=== PATIENT | female | born 1990 | race Caucasian/White ===

== ENCOUNTER 2016-06-11 02:26 | Inpatient (IN) | payer OTHER ==
[2016-06-11] VITALS (14 sets, daily range): BP systolic 118–146; BP diastolic 59–74; PULSE 94–124; RESP 17–28; TEMP 96–98.4; O2SAT 91–97
[~2016-06-11] VITALS: Ht 157.5 cm; Wt 89.1 kg
[~2016-06-11 02:26] MED LIST: ADVAI100I PO; ALBU.5I NEB; ALBU0.086 INH; ALBU17I INH; DUONI NEB; PRED10PA PO; ST J300C PO
[2016-06-11] MEDS ORDERED: ONDANSETRON HCL 4 MG/2 ML VIAL ONE (02:37)
--- NOTE | 2016-06-11 02:38 | PD ---
HPI Chief Complaint: Respiratory Distress Time Seen by Provider: 02:32 Travel History International Travel<30 days: No Contact w/Intl Traveler<30days: No Traveled to known affect area: No History of Present Illness HPI The patient is a 26 year old female who presents to the [facility] emergency department with a history of asthma since infancy that began to experience increased cough and wheezing on Saturday. The patient reports that she last used her rescue inhaler on Saturday, however this evening when her symptoms woke her up from sleep she went to [facility] emergency department and was given 3 nebulizer treatments. She was also given a prescription for Singulair. She reports that she has not had a chance to fill the prescription. She reports that just after leaving that facility her symptoms recurred. She reports that her cough is dry in character. She denies having any fevers. She denies having any nasal discharge. The patient denies any neck pain, chest pain , abdominal pain, vomiting, diarrhea, urinary symptoms, or neurologic symptoms. LMP: 06/03/2016 [facility] Past Medical History Narrative Medical The patient's past medical history is significant for asthma since childhood. 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 She reports that her immunizations are up-to-date. She denies ever being intubated. She reports that she has however been admitted to the hospital related to an asthma exacerbation. The patient has a history of depression and eczema. Asthma: Yes Blood Disorders: No Anxiety: No Depression: Yes Heart Rhythm Problems: No Cancer: No Cardiovascular Problems: No High Cholesterol: No Chest Pain: No Congestive Heart Failure: No COPD: No Diminished Hearing: No Endocrine: No Genitourinary: No Immune Disorder: No Musculoskeletal: No Neurologic: No Psychiatric: Yes Reproductive: No Respiratory: Yes (ASTHMA) Immunizations Current: No Sleep Apnea: No ?: Not LMP: 06/03/16 Past Surgical History Narrative Surgical The patient reports having her wisdom teeth extracted. Oral Surgery: Yes (wisdom teeth) Social History Alcohol Use: Yes (RARELY) Tobacco Use: No Substance Use: No Allergies-Medications (Allergen,Severity, Reaction): Coded Allergies: No Known Allergies (Unverified , 04/19/15) Reported Meds & Prescriptions Reported Meds & Active Scripts Active Advair Diskus 100/50 (Salmeterol Xinafoate/Fluticasone) Fluticasone/Salmeterol 100/50 Inh 1 Puff PO BID 30 Days Resp: Albuterol/Ipratropium 2.5 Mg/0.5 Mg (Albuterol/Ipratropium) 1 Amp Nebu 1 Ampule NEB Q4HR WHILE AWAKE NEB 30 Days Sterapred Ds 12 Day Pack (Prednisone) 10 Mg Lamont 10 Mg PO DIRECTED USE DIRECTED Proventil Conc Ud 0.5% (2.5 Mg/0.5 Ml) (Albuterol Sulfate) 2.5 Mg/0.5 Ml Inha 2.5 Mg NEB Q4HR NEB PRN 30 Days Proventil Mdi (Albuterol Sulfate) 17 Gm Aero 2 Puff INH Q4-6HPRN Proventil Ud 0.083% (2.5 Mg/3 Ml) (Albuterol Sulfate) 2.5 Mg/3 Ml Inha 2.5 Mg INH Q4-6HPRN Reported [facility] Baeza Wort ([place] Perforatum) 300 Mg Tab 300 Mg PO DAILY Review of Systems Except as stated in HPI: all other systems reviewed are Neg General / Constitutional: No: Fever Eyes: No: Visual changes HENT: No: Headaches Cardiovascular: Positive: Dyspnea on exertion, No: Chest Pain or Discomfort Respiratory: Positive: Cough (dry in character), Shortness of Breath, Wheezing Gastrointestinal: No: Nausea, Vomiting, Abdominal Pain, Changes in Bowel Habits , Indigestion, Loss of Appetite Genitourinary: No: Dysuria Musculoskeletal: No: Pain Skin: No Rash Neurologic: No: Weakness Psychiatric: No: Depression Endocrine: No: Polydipsia Hematologic/Lymphatic: No: Easy Bruising Physical Exam Narrative General: The patient is a well-developed well-nourished female who presents to [facility] emergency Department with O2 saturations of 88% on room air, generalized wheezing noted with conversational dyspnea. Head and Neck exam: Head is normocephalic atraumatic. Eyes: EOMI, pupils are equal round and reactive to light. Nose: Midline septum with pink mucous membranes Mouth: Dentition unremarkable. Moist mucus membranes. Posterior oropharynx is not erythematous. No tonsillar hypertrophy. Uvula midline. Airway patent. Neck: No palpable lymphadenopathy. No nuchal rigidity. No thyromegaly. Cardiovascular: Sinus tachycardia in the low 100 without murmurs, gallops, or rubs. No pulse deficit to the extremities and simultaneous auscultation and palpation of her radial artery. Lungs: Expiratory wheezes are audible throughout all lung st[place]. No rhonchi, no crackles. Abdomen: Soft, without tenderness to palpation in all 4 quadrants of the abdomen. No guarding, rebound, or rigidity. Normal bowel sounds are audible. No tenderness on palpation of McBurney's point. Extremities: No clubbing, cyanosis, or edema. No calf tenderness on palpation. Back: No costovertebral angle tenderness to palpation. Neurologic Exam: Grossly nonfocal. Skin Exam: No rash noted. Intact skin that is warm and dry. Data Data Last Documented VS Vital Signs Date Time Temp Pulse Resp B/P Pulse Ox O2 Delivery O2 Flow Rate FiO2 06/11/16 03:10 92 Nasal Cannula 2.00 06/11/16 02:34 115 22 127/68 06/11/16 02:31 98.4 Orders Electrocardiogram (06/11/16 02:32) Complete Blood Count With Diff (06/11/16 02:32) Basic Metabolic Panel (Bmp) (06/11/16 02:32) D-Dimer (06/11/16 02:32) Magnesium (Mg) (06/11/16 02:32) Chest, Single Ap (06/11/16 02:32) Iv Access Insert/Monitor (06/11/16 02:32) Ecg Monitoring (06/11/16 02:32) Oximetry (06/11/16 02:32) Ed Urine Pregnancytest Poc (06/11/16 02:32) Sodium Chloride 0.9% Flush (Ns Flush) (06/11/16 02:45) Methylprednisolone So Succ Inj (Solumedr (06/11/16 02:45) Albuterol-Ipratropium Neb (Duoneb Neb) (06/11/16 02:45) Ondansetron Inj (Zofran Inj) (06/11/16 02:37) Sodium Chlor 0.9% 1000 Ml Inj (Ns 1000 M (06/11/16 02:45) Ondansetron Inj (Zofran Inj) (06/11/16 02:45) Ct Pulmonary Angiogram (06/11/16 03:17) Iohexol 350 Inj (Omnipaque 350 Inj) (06/11/16 03:47) Ceftriaxone Inj (Rocephin Inj) (06/11/16 05:00) Azithromycin Inj (Zithromax Inj) (06/11/16 05:00) Blood Culture (06/11/16 05:01) Admit Order (Ed Use Only) (06/11/16 05:11) Labs Laboratory Tests Test 06/11/16 02:45 White Blood Count 13.3 TH/MM3 Red Blood Count 4.88 MIL/MM3 Hemoglobin 14.0 GM/DL Hematocrit 41.5 % Mean Corpuscular Volume 84.9 FL Mean Corpuscular Hemoglobin 28.6 PG Mean Corpuscular Hemoglobin 33.7 % Concent Red Cell Distribution Width 13.1 % Platelet Count 322 TH/MM3 Mean Platelet Volume 8.6 FL Neutrophils (%) (Auto) 52.0 % Lymphocytes (%) (Auto) 24.3 % Monocytes (%) (Auto) 5.6 % Eosinophils (%) (Auto) 17.3 % Basophils (%) (Auto) 0.8 % Neutrophils # (Auto) 6.9 TH/MM3 Lymphocytes # (Auto) 3.2 TH/MM3 Monocytes # (Auto) 0.7 TH/MM3 Eosinophils # (Auto) 2.3 TH/MM3 Basophils # (Auto) 0.1 TH/MM3 CBC Comment DIFF FINAL Differential Comment D-Dimer Quantitative (PE/DVT) 0.99 MG/L FEU Sodium Level 143 MEQ/L Potassium Level 4.3 MEQ/L Chloride Level 109 MEQ/L Carbon Dioxide Level 24.7 MEQ/L Anion Gap 9 MEQ/L Blood Urea Nitrogen 7 MG/DL Creatinine 0.68 MG/DL Estimat Glomerular Filtration 106 ML/MIN Rate Random Glucose 103 MG/DL Calcium Level 9.2 MG/DL Magnesium Level 2.1 MG/DL [facility] Medical Decision Making Medical Screen Exam Complete: Yes Emergency Medical Condition: Yes Medical Record Reviewed: Yes Interpretation(s) Last Impressions CT Angiography 06/11/16316 Signed Impressions: Service Date/Time: Saturday, June 11, 2016 03:47 - CONCLUSION: 1. Bilateral patchy infiltrates. Treatment and followup recommended. 2. Mild enlargement of the pulmonary trunk suggesting pulmonary arterial hypertension. 3. Mild right hilar adenopathy likely reactive. 4. Scattered sub-centimeters pulmonary nodules, likely benign. 5. No pulmonary embolism. Enoch Olson MD Chest X-Ray 06/11/16 0232 Signed Impressions: Service Date/Time: Saturday, June 11, 2016 02:35 - CONCLUSION: Minimal bibasilar densities otherwise unremarkable chest. Enoch Olson MD Differential Diagnosis Asthma exacerbation, versus pulmonary embolism, versus pneumonia, versus pneumothorax Narrative Course During the course of the patients emergency department visit, the patients history, examination, and differential diagnosis were reviewed with the patient. The patient had IV access obtained and blood work sent for analysis. The patient was placed on a monitoring tech with oximetry and blood pressure monitoring. An EKG was ordered. The patient began to have nausea and vomited 1 in the emergency department. The patient had an EKG done that revealed a sinus tachycardia heart rate of 113, no acute ST segment elevation or depression. The patient was provided normal saline 1 L IV fluid bolus, Zofran 4 mg IV, DuoNeb 3, Solu-Medrol 125 mg IV. The patients laboratory studies were reviewed and remarkable for a white count of 13.3, hemoglobin 14, platelets 322, eosinophils 17.3. Basic metabolic profile is unremarkable, magnesium 2.1, d-dimer elevated at 0.99. CTA to rule out PE was ordered. Radiology studies were reviewed and remarkable for a chest x-ray that shows minimal bibasilar densities in the left worse than the right. Blood cultures 2 were drawn. The patient was started on Rocephin 1 g IV, Zithromax 500 IV. The patient continued to require supplemental oxygen. The patient was initially satting 85-88% on room air. The patient is now on 2 L nasal cannula O2 and saturating 93%. CTA to rule out PE shows a bilateral patchy infiltrate, treatment and follow-up recommended, mild enlargement of the pulmonary trunk suggesting pulmonary arterial hypertension, mild right hilar adenopathy that is likely reactive, scattered subcentimeter pulmonary nodules likely benign, no PE. The patients results were discussed with the patient, including the plan of care. I explained that further testing and/ or monitoring is indicated based on the patients history, examination, and/ or laboratory findings. Therefore, I recommended admission for additional evaluation. The patient expressed understanding and was agreeable with this plan. The patient was admitted to the hospital in stable condition and sent to a bed under the care of the [facility] hospitalist service. Physician Communication Physician Communication The patient's case was discussed with Dr. Shah who did agree to admit the patient for further evaluation and treatment at this time. Diagnosis Primary Impression: Asthma exacerbation Additional Impressions: Hypoxemia Lung infiltrate Admitting Information Admitting Physician Requests: it Veena Valentin MD Jun 11, 2016 02:38
[2016-06-11] MEDS ORDERED: SODIUM CHLORIDE 0.9% FLUSH 10 ML FLUSH IVF PRN (02:45)
[2016-06-11] MEDS ORDERED: SODIUM CHLOR 0.9% 1000 ML INJ 1,000 ML IV ONE ×2 (02:45→05:15)
[2016-06-11] MEDS ORDERED: ONDANSETRON HCL 4 MG/2 ML VIAL IV ONE (02:45)
[2016-06-11] MEDS ORDERED: methylPREDNISolone SOD SUCC 125 MG/2 ML VIAL IVP ONE (02:45)
[2016-06-11 02:53] LABS: AUTOMATED NEUTROPHIL # 6.9 TH/MM3 (1.8-7.7); BASOPHIL # 0.1 TH/MM3 (0-0.2); BASOPHIL % 0.8 % (0.0-2.0); EOSINOPHIL # 2.3 TH/MM3 (0-0.4); EOSINOPHIL % 17.3 % (0.0-4.0); HEMATOCRIT 41.5 % (35.0-46.0); HEMO FLAGS DIFF FINAL; LYMPH % 24.3 % (9.0-44.0); LYMPHOCYTE # 3.2 TH/MM3 (1.0-4.8); MEAN CELL VOLUME 84.9 FL (80.0-100.0); MEAN CORPUSCULAR HEMOGLOBIN 28.6 PG (27.0-34.0); MEAN CORPUSCULAR HGB CONC 33.7 % (32.0-36.0); MONO % 5.6 % (0.0-8.0); PLATELET COUNT 322 TH/MM3 (150-450); RED BLOOD COUNT 4.88 MIL/MM3 (4.00-5.30); RED CELL DISTRIBUTION WIDTH 13.1 % (11.6-17.2); WHITE BLOOD COUNT 13.3 TH/MM3 (4.0-11.0)
[2016-06-11 03:32] LABS: BICARBONATE 24.7 MEQ/L (21.0-32.0); MAGNESIUM 2.1 MG/DL (1.5-2.5); POTASSIUM 4.3 MEQ/L (3.5-5.1)
[2016-06-11] MEDS: RESP: ALBUTEROL 2.5 MG/IPRATROPIUM 0.5 MG NEB (SCH) INH (03:40)
[2016-06-11] MEDS ORDERED: IOHEXOL 350 MG/ML 10 ML VIAL (for RAD DIAG) IV ONE (03:47)
--- NOTE | 2016-06-11 04:02 | RADRPT ---
EXAM DATE/TIME: 06/11/2016 02:35 [facility] COMPARISON: No previous studies available for comparison. INDICATIONS : Shortness of breath. MEDICAL HISTORY : Asthma. SURGICAL HISTORY : None. ENCOUNTER: Initial ACUITY: 1 day PAIN SCORE: 3/10 LOCATION: chest midline. FINDINGS: A single view of the chest demonstrates minimal bibasilar densities greater in the left lower lobe. H eart normal in size. The cardiomediastinal contours are unremarkable. Osseous structures are intact. CONCLUSION: Minimal bibasilar densities otherwise unremarkable chest. Enoch Olson MD on June 11, 2016 at 4:00 Board Certified Radiologist. This report was verified electronically.
[2016-06-11] MEDS ORDERED: AZITHROMYCIN INJ 500 MG in SODIUM CHLOR 0.9% 250 ML INJ 250 ML IV ONE (05:00)
[2016-06-11] MEDS ORDERED: cefTRIAXone INJ 1,000 MG in SODIUM CHLORIDE 0.9% INJ 100 ML IV ONE (05:00)
--- NOTE | 2016-06-11 05:14 | RADRPT ---
EXAM DATE/TIME: 06/11/2016 03:47 [facility] COMPARISON: CHEST SINGLE AP, June 11, 2016, 2:35. INDICATIONS : Respiratory distress; rule out pulmonary embolus. IV CONTRAST: 70 cc Omnipaque 350 (iohexol) IV RADIATION DOSE: 23.38 CTDIvol (mGy) MEDICAL HISTORY : Asthma SURGICAL HISTORY : None. ENCOUNTER: Initial ACUITY: 1 day PAIN SCALE: 0/10 LOCATION: chest TECHNIQUE: Volumetric scanning of the chest was performed using a pulmonary embolism protocol MIP images were re constructed. Using automated exposure control and adjustment of the mA and/or kV according to patien t size, radiation dose was kept as low as reasonably achievable to obtain optimal diagnostic quality images. FINDINGS: PULMONARY ARTERIES: No filling defects are seen in the pulmonary arteries through the segmental level. LUNGS: There are patchy infiltrates in the right upper lobe, right middle lobe and left upper lobe, includin g the lingula. There are some scattered pulmonary nodules measure 5 mm in the right lower lobe superi or segment. There is a 5 mm nodule in the right lower lobe posteriorly. There is a 2 mm nodule in the left lower lobe posteriorly. No concerning pulmonary nodule is visualized. PLEURAE: There is no pleural thickening or pleural effusion. MEDIASTINUM: There is good visualization of the great vessels of the middle mediastinum. Mild right hilar adenopat hy measures 1.3 x 1.7 cm. Small lymph nodes seen within the prevascular/superior mediastinum. Pulmona ry trunk mildly enlarged, measuring 2.7 cm, suggesting pulmonary arterial hypertension. MUSCULOSKELETAL: Within normal limits for patient age. MISCELLANEOUS: The visualized upper abdominal organs demonstrate no acute abnormality. CONCLUSION: 1. Bilateral patchy infiltrates. Treatment and followup recommended. 2. Mild enlargement of the pulmonary trunk suggesting pulmonary arterial hypertension. 3. Mild right hilar adenopathy likely reactive. 4. Scattered sub-centimeters pulmonary nodules, likely benign. 5. No pulmonary embolism. Enoch Olson MD on June 11, 2016 at 5:06 Board Certified Radiologist. This report was verified electronically.
[2016-06-11] MEDS ORDERED: RESP: ALBUTEROL 2.5 MG/3 ML NEB (PRN) NEB (05:15)
[2016-06-11] MEDS ORDERED: ACETAMINOPHEN 325 MG TAB PO PRN (05:15)
[2016-06-11] MEDS ORDERED: BISACODYL 10 MG SUPP RECTAL PRN (05:15)
[2016-06-11] MEDS ORDERED: ONDANSETRON HCL 4 MG/2 ML VIAL IVP PRN (05:15)
[2016-06-11] MEDS ORDERED: SODIUM CHLORIDE 0.9% FLUSH 10 ML FLUSH IV FLUSH PRN (05:15)
--- NOTE | 2016-06-11 05:22 | HHI.HP ---
[facility] No Primary Care Physician Admission Diagnosis Asthma exacerbation, bibasilar infiltrate, hypoxemia on RA Diagnoses: (1) Asthma exacerbation Diagnosis: Principal (2) Hypoxia Diagnosis: Principal (3) PNA (pneumonia) Diagnosis: Principal Travel History International Travel<30 Days: No Contact w/Intl Traveler <30 Da: No Traveled to Known Affected Are: No History of Present Illness This is a 26-year-old female with a PMH of Depression and Asthma who presented to the ER with SOB and wheezing x1 day. States started to have SOB on Saturday , used home inhaler w/ minimal relief. Seen at [facility] last night and given DuoNeb and Rx for Singulair, however has not been able to fill prescription as symptoms progressively worse and decided to come to ER. On arrival, O2 sat 87% on RA, s/p Solu-Medrol and DuoNeb in ER w/ some improvement. WBC 13.3. Chemistry essentially unremarkable. CXR with minimal bibasilar densities. D- dimer mildly elevated 0.99. CTA Pulm currently pending. Review of Systems Except as stated in HPI: all other systems reviewed are Neg ROS: 14 point review of systems otherwise negative. Past Family Social History Past Medical History PMH: Asthma, Depression Past Surgical History PAST SURGICAL HISTORY: [place] Teeth Extraction Allergies: Coded Allergies: No Known Allergies (Unverified , 04/19/15) Family History PAST FAMILY HISTORY: Reviewed. No h/o DM or CAD Social History PAST SOCIAL HISTORY: Occasional alcohol. Negative for tobacco or drugs. Physical Exam Vital Signs Vital Signs Date Time Temp Pulse Resp B/P Pulse Ox O2 Delivery O2 Flow Rate FiO2 06/11/16 03:10 92 Nasal Cannula 2.00 06/11/16 02:34 115 22 127/68 91 Nasal Cannula 2 06/11/16 02:34 122 22 91 Nasal Cannula 2 06/11/16 02:31 98.4 122 22 127/68 91 Physical Exam PE: GENERAL: Young female in no acute distress. HEENT: PERRLA, EOMI. No scleral icterus or conjunctival pallor. No lid lag or facial droop. CARDIOVASCULAR: Regular rate and rhythm. No obvious murmurs to auscultation. No chest tenderness to palpation. RESPIRATORY: No obvious rhonchi. Occasional wheezing. Clear to auscultation. Breath sounds equal bilaterally. GASTROINTESTINAL: Abdomen soft, non-tender, nondistended. BS normal. MUSCULOSKELETAL: Extremities without clubbing, cyanosis, or edema. No obvious deformities. NEUROLOGICAL: Awake, alert and oriented x4. No focal neurologic deficits. Moving both upper and lower extremities spontaneously. Laboratory Laboratory Tests Test 06/11/16 02:45 White Blood Count 13.3 Red Blood Count 4.88 Hemoglobin 14.0 Hematocrit 41.5 Mean Corpuscular Volume 84.9 Mean Corpuscular Hemoglobin 28.6 Mean Corpuscular Hemoglobin 33.7 Concent Red Cell Distribution Width 13.1 Platelet Count 322 Mean Platelet Volume 8.6 Neutrophils (%) (Auto) 52.0 Lymphocytes (%) (Auto) 24.3 Monocytes (%) (Auto) 5.6 Eosinophils (%) (Auto) 17.3 Basophils (%) (Auto) 0.8 Neutrophils # (Auto) 6.9 Lymphocytes # (Auto) 3.2 Monocytes # (Auto) 0.7 Eosinophils # (Auto) 2.3 Basophils # (Auto) 0.1 CBC Comment DIFF FINAL Differential Comment D-Dimer Quantitative (PE/DVT) 0.99 Sodium Level 143 Potassium Level 4.3 Chloride Level 109 Carbon Dioxide Level 24.7 Anion Gap 9 Blood Urea Nitrogen 7 Creatinine 0.68 Estimat Glomerular Filtration 106 Rate Random Glucose 103 Calcium Level 9.2 Magnesium Level 2.1 Result Diagram: 06/11/165 06/11/165 Assessment and Plan Problem List: (1) Asthma exacerbation ICD Code: J45.901 Status: Acute (2) Hypoxia ICD Code: R09.02 Status: Acute (3) PNA (pneumonia) ICD Code: J18.9 Status: Acute Assessment and Plan A/P: 1. Asthma: w/ Acute Exacerbation, SOB/wheezing x1 day unrelieved by home inhaler, seen at [facility] s/p DuoNeb x3 however recurrent SOB/wheezing. S/p Solu-Medrol and DuoNeb in ER. Continue w/ Solu-Medrol, Albuterol q4h and q2h prn, Symbicort, Mucinex. 2. Hypoxia: O2 sat 87% on RA upon arrival, currently 92-93% on 2L NC, no respiratory distress at this time, continue w/ treatment as above. 3. PNA: CXR w/ bibasilar consolidations, images reviewed by me. S/p Navdeep/ Lisa in ER, will continue w/ IV Abx. 4. DVT Prophylaxis: SCD/Teds 5. Social work for d/c planning as needed. 6. Case discussed w/ ER physician at length. Physician Certification 2 Midnight Certification Type: Admission for Inpatient Services Order for Inpatient Services The services are ordered in accordance with Medicare regulations or non- Medicare payer requirements, as applicable. In the case of services not specified as inpatient-only, they are appropriately provided as inpatient services in accordance with the 2-midnight benchmark. Estimated LOS (days): 2 days is the estimated time the patient will need to remain in the hospital, assuming treatment plan goals are met and no additional complications. Post-Hospital Plan: Home Kimberley Shah MD Jun 11, 2016 05:22
[2016-06-11] MEDS: AZITHROMYCIN INJ 500 MG in SODIUM CHLOR 0.9% 250 ML INJ 250 ML IV SCH (05:27)
[2016-06-11] MEDS: methylPREDNISolone SOD SUCC 40 MG/1 ML VIAL IV PUSH SCH ×3 (06:00→17:31)
[2016-06-11] MEDS: RESP: ALBUTEROL 2.5 MG/3 ML NEB (SCH) NEB ×4 (07:24→19:58)
[2016-06-11] MEDS: guaiFENesin E.R. 600 MG TAB PO SCH ×2 (09:27→21:34)
[2016-06-11] MEDS: SODIUM CHLORIDE 0.9% FLUSH 10 ML FLUSH IV FLUSH SCH ×2 (09:28→21:35)
[2016-06-11] MEDS: BUDESONIDE-FORMOTEROL 160/4.5 MCG INHALER INH SCH ×2 (11:21→21:35)
--- NOTE | 2016-06-11 14:01 | EKG ---
Date Performed: 06/11/2016 Time Performed: 02:54:45 PTAGE: 26 years EKG: SINUS TACHYCARDIA ABNORMAL RHYTHM ECG NO PREVIOUS TRACING DOCTOR: Agnes Brown Interpretating Date/Time 06/11/2016 13:59:14
[2016-06-12] VITALS: BP 97/52; PULSE 102; RESP 16; TEMP 97.4; O2SAT 92
[2016-06-12] MEDS: methylPREDNISolone SOD SUCC 40 MG/1 ML VIAL IV PUSH SCH ×3 (00:12→11:35)
[2016-06-12 04:00] VITALS: BP 109/64; PULSE 95; RESP 17; TEMP 97.1; O2SAT 93
[2016-06-12] MEDS: AZITHROMYCIN INJ 500 MG in SODIUM CHLOR 0.9% 250 ML INJ 250 ML IV SCH (05:42)
[2016-06-12] MEDS ORDERED: cefTRIAXone INJ 1,000 MG in SODIUM CHLORIDE 0.9% INJ 100 ML IV SCH (06:00)
[2016-06-12] MEDS: SODIUM CHLORIDE 0.9% FLUSH 10 ML FLUSH IV FLUSH SCH (07:52)
[2016-06-12] MEDS: guaiFENesin E.R. 600 MG TAB PO SCH (07:53)
[2016-06-12] MEDS: BUDESONIDE-FORMOTEROL 160/4.5 MCG INHALER INH SCH (07:53)
[2016-06-12 07:55] VITALS: PULSE 98
[2016-06-12 08:00] VITALS: BP 114/64; PULSE 98; RESP 18; TEMP 97.4; O2SAT 94
[2016-06-12 08:02] LABS: AUTOMATED NEUTROPHIL # 17.3 TH/MM3 (1.8-7.7); BASOPHIL % 0.1 % (0.0-2.0); HEMATOCRIT 38.1 % (35.0-46.0); HEMO FLAGS DIFF FINAL; LYMPHOCYTE # 1.3 TH/MM3 (1.0-4.8); MEAN CELL VOLUME 85.5 FL (80.0-100.0); MEAN CORPUSCULAR HEMOGLOBIN 29.2 PG (27.0-34.0); MEAN CORPUSCULAR HGB CONC 34.1 % (32.0-36.0); MONO % 1.8 % (0.0-8.0); NEUT % 91.1 % (16.0-70.0); PLATELET COUNT 302 TH/MM3 (150-450); RED BLOOD COUNT 4.46 MIL/MM3 (4.00-5.30); RED CELL DISTRIBUTION WIDTH 13.2 % (11.6-17.2)
[2016-06-12 08:28] LABS: ALKALINE PHOSPHATASE 73 U/L (45-117); ALT (GPT) 31 U/L (10-53); ANION GAP 9 MEQ/L (5-15); AST (GOT) 12 U/L (15-37); BLOOD UREA NITROGEN 9 MG/DL (7-18); CHLORIDE 108 MEQ/L (98-107); GLOMERULAR FILTRATION RATE 118 ML/MIN (>89); POTASSIUM 4.3 MEQ/L (3.5-5.1); SODIUM (NA) 141 MEQ/L (136-145); TOTAL BILIRUBIN ADULT 0.3 MG/DL (0.2-1.0)
[2016-06-12] MEDS: RESP: ALBUTEROL 2.5 MG/3 ML NEB (SCH) NEB ×2 (09:29→13:20)
[2016-06-12 09:30] VITALS: O2SAT 96
[2016-06-12 12:00] VITALS: BP 123/60; PULSE 112; RESP 18; TEMP 96.3; O2SAT 93
[2016-06-12] MEDS ORDERED: AZIT250T3 PO (13:00)
[2016-06-12] MEDS ORDERED: ADVA100A INH (13:00)
[2016-06-12] MEDS ORDERED: PRED20 PO (13:00)
[2016-06-12] MEDS ORDERED: CEFU1TAB20 PO (13:00)
--- NOTE | 2016-06-12 13:01 | HHI.DCPOC ---
Discharge Care Plan Diagnosis: (1) Asthma exacerbation (2) PNA (pneumonia) (3) Hypoxemia Goals to Promote Your Health * To prevent worsening of your condition and complications * To maintain your health at the optimal level Directions to Meet Your Goals Take your medications as prescribed Follow your dietary instruction Follow activity as directed Keep your appointments as scheduled Take your immunizations and boosters as scheduled If your symptoms worsen call your PCP, if no PCP go to Urgent Care Center or Emergency Room Smoking is Dangerous to Your Health. Avoid second hand smoke Call the 24-hour hour crisis hotline for domestic abuse at Yesenia Gonsalez MD Jun 12, 2016 13:01
--- NOTE | 2016-06-12 13:03 | HHI.PR ---
Subjective Remarks Patient reports feeling much better. She wants to go home. Off oxygen, breathing comfortable. Understand the need to follow up outpatient and to continue antibiotics and steroids outpatient. Objective Vitals Vital Signs Date Time Temp Pulse Resp B/P Pulse Ox O2 Delivery O2 Flow Rate FiO2 06/12/16 12:00 96.3 112 18 123/60 93 06/12/16 09:30 96 Nasal Cannula 2.00 06/12/16 08:00 97.4 98 18 114/64 94 06/12/16 07:55 98 06/12/16 04:00 97.1 95 17 109/64 93 06/12/16 00:00 97.4 102 16 97/52 92 06/11/16 20:00 96.9 110 17 118/65 92 06/11/16 19:27 Nasal Cannula 2.00 06/11/16 19:15 102 06/11/16 15:57 97.1 124 18 133/63 93 06/11/16 15:49 91 Nasal Cannula 1.50 I/O 06/11/16 06/11/16 06/11/16 06/12/16 06/12/16 06/12/16 07:00 15:00 23:00 07:00 15:00 23:00 Intake Total 720 ml 240 ml 240 ml Balance 720 ml 240 ml 240 ml Intake Oral 720 ml 240 ml 240 ml # Voids 1 1 2 # Bowel Movements 0 0 1 Result Diagram: 06/12/1609 06/12/[address] Angiography 06/11/167 Signed Impressions: Service Date/Time: Saturday, June 11, 2016 03:47 - CONCLUSION: 1. Bilateral patchy infiltrates. Treatment and followup recommended. 2. Mild enlargement of the pulmonary trunk suggesting pulmonary arterial hypertension. 3. Mild right hilar adenopathy likely reactive. 4. Scattered sub-centimeters pulmonary nodules, likely benign. 5. No pulmonary embolism. Enoch Olson MD Chest X-Ray 06/11/16 0232 Signed Impressions: Service Date/Time: Saturday, June 11, 2016 02:35 - CONCLUSION: Minimal bibasilar densities otherwise unremarkable chest. Enoch Olson MD Objective Remarks GENERAL: This is a well-nourished, well-developed patient, in no apparent distress. CARDIOVASCULAR: Normal rate and regular rhythm without murmurs, gallops, or rubs. RESPIRATORY: Good respiratory efforts. Breath sounds equal and clear to auscultation bilaterally. GASTROINTESTINAL: Abdomen soft, non-tender, non-distended. Normal active bowel sounds MUSCULOSKELETAL: Extremities without cyanosis, or edema. NEURO: Alert & Oriented x4 to person, place, time, situation. Moves all ext x4 PSYCH: Appropriate mood and affect. A/P Problem List: (1) Asthma exacerbation ICD Code: J45.901 Status: Acute (2) Hypoxia ICD Code: R09.02 Status: Acute (3) PNA (pneumonia) ICD Code: J18.9 Status: Acute Assessment and Plan 26-year-old female admitted with asthma exacerbation and hypoxemia. Chest x- ray revealed bibasilar consolidations. Patient was treated with Rocephin, azithromycin, Solu-Medrol, and breathing treatments. She quickly improved and stabilized enough for discharge home to continue treatment outpatient. Discharge home in good condition Follow-up with: PCP and pulmonology. She needs to establish. Diet: Regular as tolerated Meds: Per med rec Activity: Regular as tolerated Yesenia Gosnalez MD Jun 12, 2016 13:03
[2016-06-19] MEDS ORDERED: ADVA500A INH (10:52)
[2016-06-19] MEDS ORDERED: MONT10TA4 PO (10:52)
[2016-06-19] MEDS ORDERED: ALBUAER3 INH (10:52)
[2016-06-19] MEDS ORDERED: CEFU1TAB20 PO (10:52)
[2016-06-19] MEDS ORDERED: PRED20 PO (10:52)
[2016-06-19] MEDS ORDERED: ALBU0.08 NEB (11:24)
[2016-07-24] MEDS ORDERED: ALBUAER3 INH (14:12)
[2016-07-27] MEDS ORDERED: OSEL75 PO (14:52)
== END 2016-06-12 14:56 | disposition home or self-care (01) | DRG 194 ==
LOC: NEPE 02:26 → NEDA 05:13 → N06A 09:16
PROVIDERS: ADMIT Family Medicine; ATTEND Family Medicine
DX: J18.9 Pneumonia, unspecified organism (principal); J45.901 Unspecified asthma with (acute) exacerbation; F32.9 Major depressive disorder, single episode, unspecified; L30.9 Dermatitis, unspecified
CPT/HCPCS: 71010; 71275; 80048; 80053; 83735; 84703; 85025; 85379; 87040; 93005; 94640; 94664; 96374; 96375; J0456; J0696; J2405; J2920; J2930; J7030; J7050; J7613; Q9967

== ENCOUNTER 2016-10-23 23:05 | Emergency (ER) | payer SELFPAY ==
[~2016-10-23 23:05] MED LIST changes: +ADVA500A INH; -ADVAI100I PO; -ALBU.5I NEB; +ALBU0.08 NEB; -ALBU0.086 INH; -ALBU17I INH; +ALBUAER3 INH; -DUONI NEB; +MONT10TA4 PO; +OSEL75 PO; -PRED10PA PO; -ST J300C PO
[2016-10-23 23:09] VITALS: BP 123/71; PULSE 116; RESP 24; TEMP 98; O2SAT 96
--- NOTE | 2016-10-23 23:40 | PD ---
HPI Chief Complaint: Respiratory Symptoms Time Seen by Provider: 23:33 Travel History International Travel<30 days: No Contact w/Intl Traveler<30days: No History of Present Illness HPI Patient is a 26-year-old female presents emergency department shortness of breath. She states she has a history of asthma and has been in the ICU but never had to be intubated before. He is ran out of her nebulized treatments at home but has been taking inhalers. She has not been on steroids in several months. Denies any fever denies any cough congestion denies any history of long trips nor history of blood clots nor history of oral contraceptive pills or other hormone replacement therapy. States symptoms been going on all day today gradually worsening. PFSH Past Medical History Asthma: Yes Blood Disorders: No Anxiety: No Depression: Yes Heart Rhythm Problems: No Cancer: No Cardiovascular Problems: No High Cholesterol: No Chest Pain: No Congestive Heart Failure: No COPD: No Diminished Hearing: No Endocrine: No Genitourinary: No Immune Disorder: No Musculoskeletal: No Neurologic: No Psychiatric: Yes Reproductive: No Respiratory: Yes (ASTHMA) Immunizations Current: No Sleep Apnea: No Influenza Vaccination: Yes ?: Not LMP: 10/02/16 Past Surgical History Oral Surgery: Yes (wisdom teeth) Social History Alcohol Use: No Tobacco Use: No Substance Use: Yes (MARIJUANA) Allergies-Medications (Allergen,Severity, Reaction): Coded Allergies: diphenhydramine (Unverified Allergy, Severe, asthma, 10/17/16) Reported Meds & Prescriptions Reported Meds & Active Scripts Active Prednisone 20 Mg Tab 60 Mg PO DAILY 5 Days Albuterol Neb (Albuterol Sulfate) 2.5 Mg/3 Ml Neb 2.5 Mg NEB Q4HR NEB While awake Proair Hfa 8.5 GM Inh (Albuterol Sulfate) 90 Mcg/Act Aer 2 Puff INH Q4-6H PRN 108 mcg/actuation Reported Advair Diskus Inh (Fluticasone-Salmeterol Inh) 500-50 Mcg/Blist Aer 1 Puff INH BID Rinse mouth after use. Montelukast (Montelukast Sodium) 10 Mg Tab 10 Mg PO HS Review of Systems Except as stated in HPI: all other systems reviewed are Neg Physical Exam Narrative GENERAL: Well-developed well-nourished, mildly anxious but in obvious distress. SKIN: Focused skin assessment warm/dry. HEAD: Atraumatic. Normocephalic. EYES: Pupils equal and round. No scleral icterus. No injection or drainage. ENT: No nasal bleeding or discharge. Mucous membranes pink and moist. NECK: Trachea midline. No JVD. CARDIOVASCULAR: And only tachycardic with regular rhythm.. No murmur appreciated. RESPIRATORY: No accessory muscle use. Inspiratory x-ray wheezing.. Breath sounds equal bilaterally. No accessory muscle use, no focalized lung sounds. GASTROINTESTINAL: Abdomen soft, non-tender, nondistended. Hepatic and splenic margins not palpable. MUSCULOSKELETAL: No obvious deformities. No clubbing. No cyanosis. No edema. NEUROLOGICAL: Awake and alert. No obvious cranial nerve deficits. Motor grossly within normal limits. Normal speech. PSYCHIATRIC: Appropriate mood and affect; insight and judgment normal. Data Data Last Documented VS Vital Signs Date Time Temp Pulse Resp B/P (MAP) Pulse Ox O2 Delivery O2 Flow Rate FiO2 10/24/16 00:45 10/23/16 23:09 98.0 116 24 96 Orders Orders Albuterol-Ipratropium Neb (Duoneb Neb) (10/23/16 23:45) Prednisone (Deltasone) (10/23/16 23:45) [facility] Medical Decision Making Medical Screen Exam Complete: Yes Emergency Medical Condition: Yes Differential Diagnosis Mild to moderate asthma exacerbation, pneumonia unlikely, PE was considered but unlikely. Narrative Course Patient roomed in emergency department, given 3 duo nebs and prednisone, she was feeling much better, saturations improved from 93 on room air up to 98% on room air. She examined that around the emergency department, discussed the be happy to observe her longer in the ER but she feels she wants to go home. This time she stable for discharge. Will discharge on prednisone I refilled her nebulizer medications. Discussed follow-up with a primary care physician and return to ED criteria. Diagnosis Primary Impression: Asthma exacerbation Med/Other Pt SpecificInfo: Prescription(s) given Scripts Prednisone (Prednisone) 20 Mg Tab 60 MG PO DAILY for 5 Days, TAB 0 Refills Prov: Anthony Lord MD 10/24/16 Albuterol Neb (Albuterol Neb) 2.5 Mg/3 Ml Neb 2.5 MG NEB Q4HR NEB for Breathing Treatment, #180 NEBULE 1 Refill While awake Prov: Anthony Lord MD 10/24/16 Disposition: 01 DISCHARGE HOME Condition: Stable Anthony Lord MD Oct 23, 2016 23:40
[2016-10-23] MEDS ORDERED: predniSONE 20 MG TAB PO ONE (23:45)
[2016-10-23] MEDS ORDERED: RESP: ALBUTEROL 2.5 MG/IPRATROPIUM 0.5 MG NEB (SCH) NEB ONE (23:45)
[2016-10-24] MEDS ORDERED: PRED20 PO (00:39)
[2016-10-24] MEDS ORDERED: ALBU0.08 NEB (00:39)
== END 2016-10-24 01:01 | disposition home or self-care (01) ==
LOC: NEPD 23:05
DX: J45.901 Unspecified asthma with (acute) exacerbation (principal)
CPT/HCPCS: 94640; 94664; 99284; J7512

== ENCOUNTER 2017-01-17 15:53 | Emergency (ER) | payer SELFPAY ==
[~2017-01-17] VITALS: Ht 165.1 cm; Wt 80.0 kg
[~2017-01-17 15:53] MED LIST changes: -OSEL75 PO; +PRED20 PO
[2017-01-17 15:55] VITALS: BP 124/76; PULSE 90; RESP 18; TEMP 98.8; O2SAT 97
[2017-01-17] MEDS ORDERED: methylPREDNISolone SOD SUCC 125 MG/2 ML VIAL IM ONE (17:00)
[2017-01-17] MEDS: RESP: ALBUTEROL 2.5 MG/IPRATROPIUM 0.5 MG NEB (SCH) INH ×2 (17:13→17:14)
--- NOTE | 2017-01-17 17:16 | RADRPT ---
EXAM DATE/TIME: 01/17/2017 16:50 [place] COMPARISON: CHEST SINGLE AP, June 11, 2016, 2:35. INDICATIONS : Wheezing, cough, and shortness of breath. MEDICAL HISTORY : Asthma. SURGICAL HISTORY : None. ENCOUNTER: Initial ACUITY: 1 day PAIN SCORE: 0/10 LOCATION: Bilateral chest FINDINGS: A single view of the chest demonstrates the lungs to be symmetrically aerated without evidence of mas s, infiltrate or effusion. The cardiomediastinal contours are unremarkable. Osseous structures are intact. CONCLUSION: 1. No acute cardiopulmonary findings. Stable compared to previous. Torin Longoria MD on January 17, 2017 at 17:14 Board Certified Radiologist. This report was verified electronically.
[2017-01-17] MEDS ORDERED: PRED20 PO (17:35)
[2017-01-17] MEDS ORDERED: ALBU0.08 NEB (17:35)
[2017-01-17] MEDS ORDERED: ALBUAER3 INH (17:35)
[2017-01-17] MEDS ORDERED: AZIT250T3 PO (17:35)
--- NOTE | 2017-01-17 17:42 | PD ---
HPI Chief Complaint: Respiratory Symptoms Time Seen by Provider: 16:44 Travel History International Travel<30 days: No Contact w/Intl Traveler<30days: No Traveled to known affect area: No History of Present Illness HPI 26-year-old female that presents to the ED for evaluation of asthma exacerbation. Per patient for the past that she's been having a severe asthma exacerbation. She is a history of asthma in the past. She states that she's been using her inhalers as well as her nebulizer machine with minimal relief. Per patient she also has congestion and cough as well as headaches. Denies any fevers chills or sweats. Patient does have sick contacts at home. She states that she's been compliant with her medications. She denies any chest pain. She states having shortness of breath and wheezing the gets worse with ambulation. She denies ever having to be put on a ventilator. She's had asthma all her life. She denies smoking. No recent travel. No bowel movement or urinary issues. No abdominal pain. PFSH Past Medical History Asthma: Yes Blood Disorders: No Anxiety: No Depression: Yes Heart Rhythm Problems: No Cancer: No Cardiovascular Problems: No High Cholesterol: No Chest Pain: No Congestive Heart Failure: No COPD: No Diminished Hearing: No Endocrine: No Genitourinary: No Immune Disorder: No Musculoskeletal: No Neurologic: No Psychiatric: Yes Reproductive: No Respiratory: Yes (ASTHMA ) Immunizations Current: No Sleep Apnea: No ?: Not Past Surgical History Oral Surgery: Yes (wisdom teeth) Other Surgery: Yes (wisdom teeth removal 2009) Social History Alcohol Use: No Tobacco Use: No Substance Use: Yes (MARIJUANA) Allergies-Medications (Allergen,Severity, Reaction): Coded Allergies: diphenhydramine (Unverified Allergy, Severe, asthma, 10/17/16) Reported Meds & Prescriptions Reported Meds & Active Scripts Active Azithromycin 250 Mg Tab 250 Mg PO DIRECTED Take 2 tabs (500 mg) on day 1 then 1 tab daily x 4 days. Prednisone 20 Mg Tab 60 Mg PO DAILY 5 Days Albuterol Neb (Albuterol Sulfate) 2.5 Mg/3 Ml Neb 2.5 Mg NEB Q4HR NEB While awake Proair Hfa 8.5 GM Inh (Albuterol Sulfate) 90 Mcg/Act Aer 2 Puff INH Q4-6H PRN 108 mcg/actuation Reported Advair Diskus Inh (Fluticasone-Salmeterol Inh) 500-50 Mcg/Blist Aer 1 Puff INH BID Rinse mouth after use. Montelukast (Montelukast Sodium) 10 Mg Tab 10 Mg PO HS Review of Systems Except as stated in HPI: all other systems reviewed are Neg Physical Exam Narrative GENERAL: Well-nourished, well-developed patient in no apparent distress. SKIN: Warm and dry. HEAD: Atraumatic. Normocephalic. EYES: Pupils equal and round reactive to light and accommodation. No scleral icterus. No injection or drainage. ENT: No nasal bleeding or discharge. Mucous membranes pink and moist. TMs are clear with no sign of infection or perforation. No mastoid tenderness. Ear canals are intact bilaterally. No lymphadenopathy. Nostril mucosa is red and moist with clear mucus noted. No sinus tenderness to palpation noted. Tonsils are not enlarged or swollen. No ulvua Deviation. Tongue is midline. NECK: Trachea midline. No JVD. No meningeal signs noted CARDIOVASCULAR: Regular rate and rhythm. RESPIRATORY: No accessory muscle use. Wheezings heard in all lung stovall. Breath sounds equal bilaterally. GASTROINTESTINAL: Abdomen soft, non-tender, nondistended. Hepatic and splenic margins not palpable. MUSCULOSKELETAL: Extremities without clubbing, cyanosis, or edema. No obvious deformities. NEUROLOGICAL: Awake and alert. No obvious cranial nerve deficits. Motor grossly within normal limits. Five out of 5 muscle strength in the arms and legs. Normal speech. PSYCHIATRIC: Appropriate mood and affect; insight and judgment normal. Data Data Last Documented VS Vital Signs Date Time Temp Pulse Resp B/P (MAP) Pulse Ox O2 Delivery O2 Flow Rate FiO2 01/17/17 15:55 98.8 90 18 124/76 (92) 97 Room Air Orders Orders Chest, Single Ap (01/17/17 16:48) Methylprednisolone So Succ Inj (Solumedr (01/17/17 17:00) Albuterol-Ipratropium Neb (Duoneb Neb) (01/17/17 17:00) Influenzae A/B Antigen (01/17/17 16:48) Ed Discharge Order (01/17/17 18:23) MDM Medical Decision Making Medical Screen Exam Complete: Yes Emergency Medical Condition: Yes Medical Record Reviewed: Yes Interpretation(s) Last Impressions Chest X-Ray 01/17/17 3668 Signed Impressions: Service Date/Time: , January 17, 2017 16:50 - CONCLUSION: 1. No acute cardiopulmonary findings. Stable compared to previous. Torin Longoria MD influenza negative Differential Diagnosis Asthma exacerbation versus pneumonia versus normal exam Narrative Course 26-year-old female that presents to the ED for evaluation of asthma. Patient was properly examined and was found to have signs and symptoms consistent appears to be acute asthma exacerbation. Patient was assessed and does appear to have significant wheezing. Vitals are stable however. Labs and imaging were ordered. Patient was given breathing treatments. Patient was given Solu- Medrol IM. Patient was reassessed and does feel improved. This time I think the patient can go palpation. We'll give patient a refill of her inhaler as well as nebulizer vacation. She was given a prescription for azithromycin to cover for infection. Given prescription for prednisone as well. Told to follow closely with PCP. See ED for any worsening symptoms. Diagnosis Primary Impression: Asthma exacerbation Qualified Codes: J45.41 - Moderate persistent asthma with (acute) exacerbation Patient Instructions: General Instructions Departure Forms: Tests/Procedures, Work Release Enter return to work date: Jan 20, 2017 Additional Instructions: Motrin and Tylenol for pain and fever. You can use [id number] antihistamine as well as well as Mucinex as needed for runny nose and congestion. Cough drops for cough as needed. Drink plenty of fluids. Follow-up with PCP. See ED for worsening symptoms. Med/Other Pt SpecificInfo: Prescription(s) given Scripts Azithromycin (Azithromycin) 250 Mg Tab 250 MG PO DIRECTED for Infection, #6 TAB 0 Refills Take 2 tabs (500 mg) on day 1 then 1 tab daily x 4 days. Prov: Lian Montes DO 01/17/17 Prednisone (Prednisone) 20 Mg Tab 60 MG PO DAILY for 5 Days, TAB 0 Refills Prov: Lian Montes DO 01/17/17 Albuterol Neb (Albuterol Neb) 2.5 Mg/3 Ml Neb 2.5 MG NEB Q4HR NEB for Breathing Treatment, #180 NEBULE 1 Refill While awake Prov: Lian Montes DO 01/17/17 Albuterol 8.5 GM Inh (Proair Hfa 8.5 GM Inh) 90 Mcg/Act Aer 2 PUFF INH Q4-6H Y for SHORTNESS OF BREATH, #1 INHALER 0 Refills 108 mcg/actuation Prov: Lian Montes DO 01/17/17 Disposition: 01 DISCHARGE HOME Condition: Stable Ankush Yates Jan 17, 2017 17:42
== END 2017-01-17 19:05 | disposition home or self-care (01) ==
LOC: NEPD 15:53
DX: J45.901 Unspecified asthma with (acute) exacerbation (principal); R09.81 Nasal congestion; R05 Cough; R51 Headache; F32.9 Major depressive disorder, single episode, unspecified; Z79.51 Long term (current) use of inhaled steroids; Z79.52 Long term (current) use of systemic steroids; Z79.899 Other long term (current) drug therapy; Z88.8 Allergy status to other drugs, medicaments and biological substances
CPT/HCPCS: 71010; 87804; 94640; 94664; 96372; 99285; J2930

== ENCOUNTER 2017-03-05 14:08 | Emergency (ER) | payer SELFPAY ==
[~2017-03-05] VITALS: Ht 157.5 cm; Wt 84.1 kg
[~2017-03-05 14:08] MED LIST changes: +AZIT250T3 PO
[2017-03-05 14:10] VITALS: BP 114/72; PULSE 79; RESP 25; TEMP 98.8; O2SAT 98
[2017-03-05] MEDS ORDERED: methylPREDNISolone SOD SUCC 125 MG/2 ML VIAL IM ONE (15:00)
[2017-03-05] MEDS: RESP: ALBUTEROL 2.5 MG/IPRATROPIUM 0.5 MG NEB (SCH) INH ×2 (15:20→15:25)
--- NOTE | 2017-03-05 15:31 | PD ---
HPI Chief Complaint: Respiratory Distress Time Seen by Provider: 14:44 Travel History International Travel<30 days: No Contact w/Intl Traveler<30days: No Traveled to known affect area: No History of Present Illness HPI 26-year-old female with history of asthma presents to the emergency room for evaluation of asthma exacerbation. Patient states it started last night after she spilled a bottle of bleach while cleaning at work. Her sister had to bring her nebulizer machine to work so she could have a treatment. States this morning when she woke up she was wheezing so hard that was causing her to cough. She has felt short of breath with wheezing since then. She used her nebulization treatment a few times without significant relief in symptoms. Patient got over a cold 4 days ago and was feeling fine until the bleach incident last night. No fevers or cough. Denies chronic medical conditions other than asthma. Patient has had to be hospitalized for status asthmaticus never needed to be on a ventilator. PFSH Past Medical History Asthma: Yes Blood Disorders: No Anxiety: No Depression: Yes Heart Rhythm Problems: No Cancer: No Cardiovascular Problems: No High Cholesterol: No Chest Pain: No Congestive Heart Failure: No COPD: No Diminished Hearing: No Endocrine: No Genitourinary: No Immune Disorder: No Musculoskeletal: No Neurologic: No Psychiatric: Yes Reproductive: No Respiratory: Yes ( ) Immunizations Current: No Sleep Apnea: No ?: Not LMP: 02/26/2017 Past Surgical History Oral Surgery: Yes (wisdom teeth) Other Surgery: Yes (wisdom teeth removal 2009) Social History Alcohol Use: No Tobacco Use: No Substance Use: No ( ) Allergies-Medications (Allergen,Severity, Reaction): Coded Allergies: diphenhydramine (Unverified Allergy, Severe, asthma, 10/17/16) Reported Meds & Prescriptions Reported Meds & Active Scripts Active Prednisone 20 Mg Tab 60 Mg PO DAILY 5 Days Proair Hfa 8.5 GM Inh (Albuterol Sulfate) 90 Mcg/Act Aer 2 Puff INH Q4-6H PRN 108 mcg/actuation Albuterol Neb (Albuterol Sulfate) 2.5 Mg/3 Ml Neb 2.5 Mg NEB Q4HR NEB While awake Review of Systems Except as stated in HPI: all other systems reviewed are Neg Physical Exam Narrative GENERAL: Well-nourished, well-developed female in no acute distress. Afebrile. Ambulatory. SKIN: Focused skin assessment warm/dry. HEAD: Normocephalic. EYES: No scleral icterus. No injection or drainage. NECK: Supple, trachea midline. No JVD or lymphadenopathy. CARDIOVASCULAR: Regular rate and rhythm without murmurs, gallops, or rubs. RESPIRATORY: No accessory muscle use. Slight increased work of breathing. Distant lung sounds bilaterally. There is bilateral expiratory wheezing in all lung stovall. PSYCHIATRIC: No delusional thought processes. No hallucinations. Data Data Last Documented VS Vital Signs Date Time Temp Pulse Resp B/P (MAP) Pulse Ox O2 Delivery O2 Flow Rate FiO2 03/05/17 14:10 98.8 79 25 114/72 (86) 98 Orders Orders Methylprednisolone So Succ Inj (Solumedr (03/05/17 15:00) Albuterol-Ipratropium Neb (Duoneb Neb) (03/05/17 15:00) Ed Discharge Order (03/05/17 15:56) [facility] Medical Decision Making Medical Screen Exam Complete: Yes Emergency Medical Condition: Yes Medical Record Reviewed: Yes Differential Diagnosis Asthma exacerbation, lung nodule, hypoxia, pneumonia Narrative Course 26-year-old female with history of asthma presents to the emergency room for evaluation of exacerbation that started last night. Symptoms started after she spilled a bottle of bleach on the floor last night. She has been using her nebulizer treatment several times without relief in symptoms. She recently got over a cold but has no cold symptoms at this time. Vital signs otherwise stable. Patient has increased respirations but no accessory muscle use. Lungs sounds reveal bilateral inspiratory and expiratory wheezing in all stovall. There is also decreased air movement. Patient was given 125 mg IM Solu-Medrol and 3 duo nebs in the emergency room. Patient reports significant improvement after treatment. Her respirations have slowed. She still has bilateral inspiratory and expiratory wheezing but there is significantly improved airflow. She will be discharged with prescriptions for prednisone and albuterol. Patient was encouraged to follow up with a primary care physician and/or supervisor show operations for long-term management of symptoms. Told to return for worsening symptoms. She understands and agrees to plan. Diagnosis Primary Impression: Asthma exacerbation Qualified Codes: J45.21 - Mild intermittent asthma with (acute) exacerbation Referrals: Keyur Gutierrez MD Primary Care Physician Marketing Development Specialist Additional Instructions: Prednisone as directed, until gone. Use inhaler as directed, as needed for shortness of breath and wheezing. Humidified air will help improve symptoms. Follow-up with a primary care physician. Return to the emergency room for worsening symptoms. Scripts Prednisone (Prednisone) 20 Mg Tab 60 MG PO DAILY for 5 Days, TAB 0 Refills Prov: Lucy Mc MD 03/05/17 Albuterol 8.5 GM Inh (Proair Hfa 8.5 GM Inh) 90 Mcg/Act Aer 2 PUFF INH Q4-6H Y for SHORTNESS OF BREATH, #1 INHALER 0 Refills 108 mcg/actuation Prov: Lucy Mc MD 03/05/17 Disposition: 01 DISCHARGE HOME Condition: Stable Inez Mcqueen Mar 05, 2017 15:31
[2017-03-05] MEDS ORDERED: PRED20 PO (15:53)
[2017-03-05] MEDS ORDERED: ALBUAER3 INH (15:53)
== END 2017-03-05 16:10 | disposition home or self-care (01) ==
LOC: NEPK 14:08
DX: J45.21 Mild intermittent asthma with (acute) exacerbation (principal)
CPT/HCPCS: 94640; 94664; 96372; 99284; J2930

== ENCOUNTER 2017-04-05 10:47 | Emergency (ER) | payer SELFPAY ==
[~2017-04-05] VITALS: Ht 157.5 cm; Wt 84.0 kg
[~2017-04-05 10:47] MED LIST changes: -ADVA500A INH; -AZIT250T3 PO; -MONT10TA4 PO
[2017-04-05 10:48] VITALS: BP 129/62; PULSE 106; RESP 20; TEMP 98.9; O2SAT 97
--- NOTE | 2017-04-05 11:19 | PD ---
HPI Chief Complaint: Cold / Flu Symptoms Time Seen by Provider: 10:56 Travel History International Travel<30 days: No Contact w/Intl Traveler<30days: No Traveled to known affect area: No History of Present Illness HPI This is a 26-year-old female who has a history of asthma who presents to the emergency department with subjective fevers and chills for 1 day, constant, moderate severity associated with a nonproductive cough, body aches and some nausea and decreased appetite. She says her boss at work had the flu. She has been using her nebulizer treatments because she has been feeling like she is wheezing. She did not get the flu shot this year. PFSH Past Medical History Asthma: Yes Blood Disorders: No Anxiety: No Depression: Yes Heart Rhythm Problems: No Cancer: No Cardiovascular Problems: No High Cholesterol: No Chest Pain: No Congestive Heart Failure: No COPD: No Diminished Hearing: No Endocrine: No Genitourinary: No Immune Disorder: No Musculoskeletal: No Neurologic: No Psychiatric: Yes Reproductive: No Respiratory: Yes ( ) Immunizations Current: No Sleep Apnea: No Influenza Vaccination: No ?: Not LMP: 03/22/17 Past Surgical History Oral Surgery: Yes (wisdom teeth) Other Surgery: Yes (wisdom teeth removal 2009) Social History Alcohol Use: No Tobacco Use: No Substance Use: No ( ) Allergies-Medications (Allergen,Severity, Reaction): Coded Allergies: diphenhydramine (Unverified Allergy, Severe, asthma, 10/17/16) Reported Meds & Prescriptions Reported Meds & Active Scripts Active Prednisone 20 Mg Tab 60 Mg PO DAILY 5 Days Proair Hfa 8.5 GM Inh (Albuterol Sulfate) 90 Mcg/Act Aer 2 Puff INH Q4-6H PRN 108 mcg/actuation Albuterol Neb (Albuterol Sulfate) 2.5 Mg/3 Ml Neb 2.5 Mg NEB Q4HR NEB While awake Review of Systems Except as stated in HPI: all other systems reviewed are Neg Physical Exam Narrative GENERAL:Well appearing, no acute distress SKIN: Focused skin assessment warm and dry. HEAD: Atraumatic. Normocephalic. EYES: Pupils equal and round. No injection or drainage. ENT: Moist mucous membranes. No posterior pharyngeal erythema or exudates. Normal-appearing tympanic membranes bilaterally. NECK: Trachea midline. No meningismus. CARDIOVASCULAR: Regular rate and rhythm. No murmur appreciated. RESPIRATORY: Mild diffuse wheezing in all lung stovall. No increased work of breathing or accessory muscle use. MUSCULOSKELETAL: No obvious deformities. NEUROLOGICAL: Awake and alert. No obvious cranial nerve deficits. Moving all extremities. PSYCHIATRIC: Appropriate mood and affect; insight and judgment normal. Data Data Last Documented VS Vital Signs Date Time Temp Pulse Resp B/P (MAP) Pulse Ox O2 Delivery O2 Flow Rate FiO2 04/05/17 10:59 Room Air 04/05/17 10:48 98.9 106 20 129/62 (84) 97 Orders Orders Influenzae A/B Antigen (04/05/17 11:03) MDM Medical Decision Making Medical Screen Exam Complete: Yes Emergency Medical Condition: Yes Interpretation(s) Influenza negative Differential Diagnosis Influenza, viral syndrome, acute asthma exacerbation, pneumonia Narrative Course This is a 26-year-old female who presents to the emergency department with a history of asthma with increasing fevers and chills and body aches over the past 24 hours. She is well appearing on exam but does have some wheezing. I think she benefit from a course of prednisone and she will be prescribed a cough suppressant and anti-inflammatory. Vital signs are reassuring and she is nontoxic appearing. I think is appropriate for outpatient management. Diagnosis Primary Impression: Asthma exacerbation Qualified Codes: J45.901 - Unspecified asthma with (acute) exacerbation Additional Impression: Viral syndrome Patient Instructions: General Instructions Additional Instructions: If you develop severe shortness of breath, chest pain, or difficulty breathing return to the emergency department. Use albuterol every 4 hours for the next 2 days. Then use as needed for wheezing. Complete your course of steroids. Follow up with your primary care physician in 2-3 days if your symptoms have not improved. Med/Other Pt SpecificInfo: Prescription(s) given Scripts Promethazine-Codeine Liq (Promethazine-Codeine Liq) 6.25-10 Mg/5 Ml Syrp 5 ML PO Q6H Y for COUGH AND/OR COLD SYMPTOMS, #60 ML 0 Refills Prov: Lucy Mc MD 04/05/17 Prednisone (Prednisone) 20 Mg Tab 40 MG PO DIRECTED for 4 Days, TAB 0 Refills Prov: Lucy Mc MD 04/05/17 Disposition: 01 DISCHARGE HOME Condition: Stable Lucy Mc MD Apr 05, 2017 11:19
[2017-04-05] MEDS ORDERED: PROM6.256 PO (11:54)
[2017-04-05] MEDS ORDERED: PRED20 PO (11:54)
[2017-04-05] MEDS ORDERED: ALBUAER3 INH (11:56)
== END 2017-04-05 12:13 | disposition home or self-care (01) ==
LOC: NEPD 10:47
DX: J45.901 Unspecified asthma with (acute) exacerbation (principal); B34.9 Viral infection, unspecified; F32.9 Major depressive disorder, single episode, unspecified; Z88.8 Allergy status to other drugs, medicaments and biological substances
CPT/HCPCS: 87804; 99283